=== PATIENT | male | born 1985 | race Caucasian/White ===

== ENCOUNTER 2017-06-05 21:40 | Emergency (ER) | payer SELFPAY ==
[2017-06-05 21:59] VITALS: BP 154/72; PULSE 80; TEMP 98.3; BMI 29.0
--- NOTE | 2017-06-05 21:59 | PDOC ---
Rapid Medical Evaluation Time Seen by Provider: 06/05/17 21:53 Medical Evaluation: Allergies Allergy/AdvReac Type Severity Reaction Status Date / Time No Known Allergies Allergy Verified 12/04/15 19:08 06/05/17 21:53 I have performed a brief in-person evaluation of this patient. The patient presents with a chief complaint of: R wrist pain s/p punching a door on May 27, last took ibuprofen yesterday "helped a little" Pertinent physical exam findings: decreased ROM to R wrist, swelling to ulnar wrist I have ordered the following: R wrist x-ray The patient will proceed to the ED for further evaluation. Discharge Disposition - Diagnosis Right wrist pain - Referrals - Patient Instructions - Post Discharge Activity
--- NOTE | 2017-06-05 22:28 | PDOC ---
History of Present Illness - General Chief Complaint: Pain, Acute Stated Complaint: RIGHT HAND PAIN-INJURY Time Seen by Provider: 06/05/17 21:53 History Source: Patient - History of Present Illness Occurred: reports: other Upper Extremity Pain Location: right: wrist Past History - Past Medical History Allergies/Adverse Reactions: Allergies Allergy/AdvReac Type Severity Reaction Status Date / Time No Known Allergies Allergy Verified 06/05/17 21:59 Home Medications: Ambulatory Orders NK [No Known Home Medication] 06/05/17 COPD: No - Immunization History Td Vaccination: Yes Immunization Up to Date: Yes - Suicide/Smoking/Psychosocial Hx Smoking Status: Yes Smoking History: Never smoked Years of Tobacco Use: 0 Have you smoked in the past 12 months: No Number of Cigarettes Smoked Daily: 0 Cigars Per Day: 0 Information on smoking cessation initiated: No Hx Alcohol Use: No Drug/Substance Use Hx: No Substance Use Type: None Review of Systems - Review of Systems Constitutional: No: Chills, Fever Musculoskeletal: Yes: Joint Pain, Joint Swelling *Physical Exam - Vital Signs Last Vital Signs Temp Pulse Resp BP Pulse Ox 98.3 F 80 18 154/72 98 06/05/17 21:57 06/05/17 21:57 06/05/17 21:57 06/05/17 21:57 06/05/17 21:57 - Physical Exam General Appearance: Yes: Appropriately Dressed, Mild Distress HEENT: positive: Normal Voice Neck: positive: Supple Respiratory/Chest: negative: Respiratory Distress Musculoskeletal: positive: Other (minimal sweling over dorsum of base of R 5th metacarpal, NVI) Integumentary: positive: Dry, Warm Neurologic: positive: Fully Oriented, Alert, Normal Mood/Affect Procedures - Splinting Splint Location: Right: Hand Hand-Made Type: orthoglass Splint Type: Yes: Ulnar Post-Proc Neuro Vasc Exam: normal Jordon Bandage: yes, 4" (2) Sling: Yes Medical Decision Making - Medical Decision Making 06/05/17 22:21 32-year-old male, no significant history here and swelling to right hand after punching a door approximately 10 days ago. Patient states he has been taking Motrin at home with some relief but pain continues so decided to come and be evaluated today. Patient in mild distress with minimal swelling to dorsum of base of right 5th metacarpal. X-ray demonstrates mildly displaced intra- articular fracture to base of right fifth metacarpal. Despite chance of poor healing as fractures 10 days old, will place ulnar gutter for comfort and have patient follow up with orthopedics next week/ Sling given as well. To continue motrin at home. Pt currently smokes and strongly encouraged to stop smoking as smoking can cause poor healing of fractured bone *DC/Admit/Observation/Transfer Diagnosis at time of Disposition: Finger fracture Qualifiers: Encounter type: initial encounter Finger: little finger Fracture type: closed Phalanx: proximal Fracture alignment: displaced Laterality: right Qualified Code (s): S62.616A - Displaced fracture of proximal phalanx of right little finger, initial encounter for closed fracture - Discharge Dispostion Disposition: HOME Condition at time of disposition: Good - Referrals Referrals: Praveen Reyez MD [Staff Physician] - - Patient Instructions Printed Discharge Instructions: Finger Fracture Additional Instructions: You have a fracture to your right fifth digit. Please keep splint on until you can see orthopedic. Call for orthopedic appointment with Dr. Reyez one week. Keep sling on to assist with elevating extremity above heart to help w/ swelling Take Motrin as needed for pain - Post Discharge Activity Forms/Work/School Notes: Back to Work
== END 2017-06-05 23:02 | disposition home or self-care (01) ==
LOC: JERFT 21:40
PROC: 2W3CX1Z Immobilization of Right Lower Arm using Splint (ICD-10-PCS; principal; 2017-06-05)
DX: S62.616A Displaced fracture of proximal phalanx of right little finger, initial encounter for closed fracture (principal); W22.8XXA Striking against or struck by other objects, initial encounter; Y93.89 Activity, other specified; Y92.89 Other specified places as the place of occurrence of the external cause; Y99.8 Other external cause status
CPT/HCPCS: 73110-TC-RT; 73130-TC-RT; 99282-25

== ENCOUNTER 2017-06-17 08:53 | Emergency (ER) | payer OTHER ==
[2017-06-17 09:44] VITALS: BP 133/81; PULSE 69; TEMP 98.3; BMI 30.7
--- NOTE | 2017-06-17 10:08 | PDOC ---
History of Present Illness - General Chief Complaint: Pain Stated Complaint: FOLLOW UP Time Seen by Provider: 06/17/17 10:05 History Source: Patient Exam Limitations: No Limitations - History of Present Illness Initial Comments: CHIEF COMPLAINT: 32 y/o male with diagnosed mildly displaced intra articular fracture of base of right 5th metacarpal here for ortho follow up. HISTORY OF PRESENT ILLNESS: THe patient had a splint placed here on 06/05/17, 10 days after the intial injury. He was supposed to f/u with Ortho but states they don't take his insurance so he came here for ortho consult. No new symptoms. SPlint still in place. Pt wearing sling. Vital signs on arrival are within normal limits. REVIEW OF SYSTEMS: GENERAL/CONSTITUTIONAL: No fever/chills. No weakness. No weight change. MUSCULOSKELETAL: +right hand/wrist pain.. No neck or back pain. SKIN: No rash or easy bruising. NEUROLOGIC: No headache, vertigo, loss of consciousness, or loss of sensation. PHYSICAL EXAM: VITAL_SIGNS: within normal limits GENERAL_APPEARANCE: alert, cooperative, no obvious discomfort. MENTAL_STATUS: speech clear, oriented X 3, responds appropriately to questions. NEURO: motor intact and sensory intact in injured extremity. EXTREMITIES: splint and sling in place on affected extremity. SKIN: warm, dry, good color. Past History - Past Medical History Allergies/Adverse Reactions: Allergies Allergy/AdvReac Type Severity Reaction Status Date / Time No Known Allergies Allergy Verified 06/17/17 09:35 Home Medications: Ambulatory Orders NK [No Known Home Medication] 06/05/17 COPD: No - Immunization History Td Vaccination: Yes Immunization Up to Date: Yes - Suicide/Smoking/Psychosocial Hx Smoking Status: Yes Smoking History: Never smoked Years of Tobacco Use: 0 Have you smoked in the past 12 months: No Number of Cigarettes Smoked Daily: 0 Cigars Per Day: 0 Information on smoking cessation initiated: No Hx Alcohol Use: No Drug/Substance Use Hx: No Substance Use Type: None *Physical Exam - Vital Signs Last Vital Signs Temp Pulse Resp BP Pulse Ox 98.3 F 69 18 133/81 100 06/17/17 09:36 06/17/17 09:36 06/17/17 09:36 06/17/17 09:36 06/17/17 09:36 Medical Decision Making - Medical Decision Making A/P: Pt here for ortho follow up because he tried to make an appointment but the ortho we referred him to does not accept medicaid. Will refer him to Dr. Hawkins. *DC/Admit/Observation/Transfer Diagnosis at time of Disposition: Finger fracture - Discharge Dispostion Disposition: HOME Condition at time of disposition: Good - Referrals Referrals: Toby Hawkins MD [Staff Physician] - - Patient Instructions Additional Instructions: Discharge Instructions: -Please follow up with Dr. Hawkins. He accepts medicaid and has office hours on Tuesdays from 9am-noon and from 12p-4p in this hospital on the 4th floor. - Post Discharge Activity
== END 2017-06-17 10:24 | disposition home or self-care (01) ==
LOC: JER 08:53 → JERFT 08:53
DX: S62.316D Displaced fracture of base of fifth metacarpal bone, right hand, subsequent encounter for fracture with routine healing (principal); W22.8XXD Striking against or struck by other objects, subsequent encounter
CPT/HCPCS: 99281-25

== ENCOUNTER 2017-10-01 20:54 | Emergency (ER) | payer OTHER ==
[2017-10-01 21:20] VITALS: BP 131/73; PULSE 77; TEMP 98; BMI 28.8
--- NOTE | 2017-10-01 21:20 | PDOC ---
Rapid Medical Evaluation Chief Complaint: Back Pain Time Seen by Provider: 10/01/17 21:16 Medical Evaluation: Allergies Allergy/AdvReac Type Severity Reaction Status Date / Time No Known Allergies Allergy Verified 06/17/17 09:35 10/01/17 21:16 I have performed a brief in-person evaluation of this patient. The patient presents with a chief complaint of: Lower back pain, no trauma but lifts weight frequently Pertinent physical exam findings:appears uncomfortable w/ ttp to mid lower back I have ordered the following:nothing The patient will proceed to the ED for further evaluation. Discharge Disposition - Diagnosis Lower back pain Qualifiers: Chronicity: acute Back pain laterality: unspecified Sciatica presence: without sciatica Qualified Code(s): M54.5 - Low back pain - Referrals - Patient Instructions - Post Discharge Activity
== END 2017-10-01 22:30 | disposition left against medical advice (07) ==
LOC: JERFT 20:54
DX: Z53.21 Procedure and treatment not carried out due to patient leaving prior to being seen by health care provider (principal)
CPT/HCPCS: 99281-25